=== PATIENT | male | born 1950 | race Caucasian/White ===

== ENCOUNTER 2017-12-29 01:11 | Emergency (ER) | payer MEDICARE ==
[~2017-12-29] VITALS: Ht 175.3 cm; Wt 66.0 kg
[2017-12-29 01:22] VITALS: BP 150/72; PULSE 71; RESP 16; TEMP 98.3; O2SAT 97
--- NOTE | 2017-12-29 01:28 | PD ---
HPI Chief Complaint: Fall, Headache Time Seen by Provider: 01:25 Travel History International Travel<30 days: No Contact w/Intl Traveler<30days: No History of Present Illness HPI Patient is a 67 year old male with a history of NPH s/p [employer]ILDING [employer] shunt by Dr. Pearl at [facility] presents about 2.5 hours after s/f at skilled nursing. He is there apparently rehabilitating a stroke. Alert awake and oriented he initially refused transport 2.5 hours ago. Nursing at that facility called EMS again and patient was transferred. On arrival patient complains only of a mild headache. States he got up to go to the bathroom and lost his footing and fell backwards. No history of anticoagulant use. Symptoms mild, context duration and associated s/s as above. PFSH Past Medical History Cerebrovascular Accident: Yes Diabetes: Yes Social History Alcohol Use: Yes Tobacco Use: No Substance Use: No Allergies-Medications (Allergen,Severity, Reaction): Coded Allergies: No Known Allergies (Verified Adverse Reaction, Unknown, 12/29/17) Reported Meds & Prescriptions Reported Meds & Active Scripts Active Active Prescriptions or Reported Medications Unobtainable Review of Systems Except as stated in HPI: all other systems reviewed are Neg Physical Exam Narrative GENERAL: WD/WN in nad SKIN: Warm and dry. HEAD: Atraumatic. Normocephalic. EYES: Pupils equal and round. No scleral icterus. No injection or drainage. ENT: No nasal bleeding or discharge. Mucous membranes pink and moist. NECK: Trachea midline. No JVD. CARDIOVASCULAR: Regular rate and rhythm. RESPIRATORY: No accessory muscle use. Clear to auscultation. Breath sounds equal bilaterally. GASTROINTESTINAL: Abdomen soft, non-tender, nondistended. Hepatic and splenic margins not palpable. MUSCULOSKELETAL: Extremities without clubbing, cyanosis, or edema. No obvious deformities. NEUROLOGICAL: Awake and alert. GCS of 14 ([id number]) mild confusion. Follows commands in all four extremities and 5/5 strength in all four extremities. CN 2- 12 grossly intact and non-focal. PSYCHIATRIC: Appropriate mood and affect; insight and judgment normal. Data Data Last Documented VS Vital Signs Date Time Temp Pulse Resp B/P (MAP) Pulse Ox O2 Delivery O2 Flow Rate FiO2 12/29/17 02:37 71 16 144/67 (92) 97 Room Air 12/29/17 01:[address] Brain W/O Iv Contrast(Rout) (12/29/17 ) Ct Cerv Spine W/O Contrast (12/29/17 ) Electrocardiogram (12/29/17 01:55) Basic Metabolic Panel (Bmp) (12/29/17 01:55) Complete Blood Count With Diff (12/29/17 01:55) Magnesium (Mg) (12/29/17 01:55) Prothrombin Time / Inr (Pt) (12/29/17 01:55) Act Partial Throm Time (Ptt) (12/29/17 01:55) Chest, Single Ap (12/29/17 01:55) Ecg Monitoring (12/29/17 01:55) Iv Access Insert/Monitor (12/29/17 01:55) Oximetry (12/29/17 01:55) Oxygen Administration (12/29/17 01:55) Sodium Chloride 0.9% Flush (Ns Flush) (12/29/17 02:00) Elevate Head Of Bed (12/29/17 02:26) Elevate Head Of Bed (12/29/17 02:27) Labs Laboratory Tests Test 12/29/17 02:15 White Blood Count 11.2 TH/MM3 Red Blood Count 3.34 MIL/MM3 Hemoglobin 9.7 GM/DL Hematocrit 30.2 % Mean Corpuscular Volume 90.7 FL Mean Corpuscular Hemoglobin 29.0 PG Mean Corpuscular Hemoglobin Concent 32.0 % Red Cell Distribution Width 13.5 % Platelet Count 507 TH/MM3 Mean Platelet Volume 7.9 FL Neutrophils (%) (Auto) 59.8 % Lymphocytes (%) (Auto) 24.8 % Monocytes (%) (Auto) 8.9 % Eosinophils (%) (Auto) 5.5 % Basophils (%) (Auto) 1.0 % Neutrophils # (Auto) 6.7 TH/MM3 Lymphocytes # (Auto) 2.8 TH/MM3 Monocytes # (Auto) 1.0 TH/MM3 Eosinophils # (Auto) 0.6 TH/MM3 Basophils # (Auto) 0.1 TH/MM3 CBC Comment DIFF FINAL Differential Comment Prothrombin Time 11.8 SEC Prothromb Time International Ratio 1.2 RATIO Activated Partial Thromboplast Time 23.3 SEC Blood Urea Nitrogen 29 MG/DL Creatinine 1.30 MG/DL Random Glucose 165 MG/DL Calcium Level 8.4 MG/DL Magnesium Level 1.4 MG/DL Sodium Level 138 MEQ/L Potassium Level 4.4 MEQ/L Chloride Level 105 MEQ/L Carbon Dioxide Level 23.7 MEQ/L Anion Gap 9 MEQ/L Estimat Glomerular Filtration Rate 55 ML/MIN MDM Medical Decision Making Medical Screen Exam Complete: Yes Emergency Medical Condition: Yes Differential Diagnosis Subdural hematoma, Intraparenchymal hematoma, closed head injury. Narrative Course Patient roomed in ED, neurologically has only minimal confusion but he is oriented. CT scan reveals subdural hematoma bilaterally, L>R with 2-3 mm midline shift (on wet read). Official read: Last 24 hours Impressions Chest X-Ray 12/29/17 0155 Signed Impressions: CONCLUSION: Negative examination. Ventriculostomy catheter shunt tubing overlie the right c hest. Head CT 12/29/17 0000 Signed Impressions: CONCLUSION: 1. Bilateral mixed density subdural hematomas left greater than right. There d oes produce some mass effect particularly along the left temporal lobe posterio rly. No intraparenchymal hemorrhage is seen Cervical Spine CT 12/29/17 0000 Signed Impressions: CONCLUSION: 1. C5-6 is fused. Overall good alignment. No evidence of fracture D/W patient and he requests transfer to [facility] for Dr. Pearl who knows him. Discussed with my neurosurgeon imitation marble mechanic Dr. Draper who agrees patient would be best served by surgeon who knows him. D/w Dr. Carlton at [facility] who accepts patient in transfer to ICU. Awaiting room assignment. Patient HOB elevated to 30 degrees. BP is acceptable. Patient is stable for transport to [facility]. Diagnosis Primary Impression: Subdural hematoma Scripts Unable to Obtain Active Prescriptions or Reported Meds Disposition: 70 TRANSFER TO OTHER FACILITY Condition: Stable Donis Lam MD Dec 29, 2017 01:28
[2017-12-29] MEDS ORDERED: SODIUM CHLORIDE 0.9% FLUSH 10 ML FLUSH IVF PRN (02:00)
--- NOTE | 2017-12-29 02:12 | RADRPT ---
EXAM DATE: 12/29/2017 1:56 AM EDT AGE/SEX: 67 years / Male INDICATIONS: Trauma. Fall. Hit back of head. CLINICAL DATA: This is the patient's initial encounter. Patient reports that signs and symptoms have been present for 1 day and indicates a pain score of 8/10. MEDICAL/SURGICAL HISTORY: Cerebrovascular disease. Diabetes. Fusion, cervical. RADIATION DOSE: 64.84 CTDI (mGy) COMPARISON: No prior exams available for comparison. TECHNIQUE: CT of the head without contrast. Using automated exposure control and adjustment of the mA and/or kV according to patient size, radiation dose was kept as low as reasonably achievable to ob tain optimal diagnostic quality images. FINDINGS: Cerebrum: There is a 7 mm mixed density subdural on the left side at the high convexities. Inferiorl y in the mid convexities adjacent to the left temporal lobe there is a 12 mm mixed density subdural. Subdural begins in the high convexities and extends down into the middle cranial fossa. There is a right frontal subdural hematoma with also mixed density smaller only measuring 4 mm. Right -sided ventriculostomy catheter in excellent position. Ventricles are decompressed. Posterior Fossa: The cerebellum and brainstem are intact. The 4th ventricle is midline. The cerebe llopontine angle is unremarkable. Extracranial: The visualized portion of the orbits is intact. Skull: The calvaria is intact. No evidence of skull fracture. CONCLUSION: 1. Bilateral mixed density subdural hematomas left greater than right. There does produce some mass effect particularly along the left temporal lobe posteriorly. No intraparenchymal hemorrhage is seen Electronically signed by: Kev Kaplan MD 12/29/2017 2:11 AM EDT
--- NOTE | 2017-12-29 02:14 | RADRPT ---
EXAM DATE: 12/29/2017 2:03 AM EDT AGE/SEX: 67 years / Male INDICATIONS: Trauma. Fall. Hit back of head. CLINICAL DATA: This is the patient's initial encounter. Patient reports that signs and symptoms have been present for 1 day and indicates a pain score of 0/10. MEDICAL/SURGICAL HISTORY: Cerebrovascular disease. Diabetes. Fusion, cervical. RADIATION DOSE: 26.61 CTDI (mGy) COMPARISON: No prior exams available for comparison. TECHNIQUE: Contiguous axial images were obtained using helical multirow detector technique. The vol umetric data was post-processed with multiplanar reconstruction in oblique axial, sagittal, and coron al planes. Using automated exposure control and adjustment of the mA and/or kV according to patient s ize, radiation dose was kept as low as reasonably achievable to obtain optimal diagnostic quality cesario ges. FINDINGS: Vertebrae: Normal vertebral body height. The C5-6 is fused anteriorly Alignment: Normal. No subluxation. C2-3: The bony spinal canal is normal in size. No evidence of disc bulge or herniation. The neural foramina are bilaterally patent. C3-4: The bony spinal canal is normal in size. No evidence of disc bulge or herniation. The neural foramina are bilaterally patent. C4-5: The bony spinal canal is normal in size. No evidence of disc bulge or herniation. The neural foramina are bilaterally patent. C5-6: The bony spinal canal is normal in size. No evidence of disc bulge or herniation. The neural foramina are bilaterally patent. C6-7: The bony spinal canal is normal in size. No evidence of disc bulge or herniation. The neural foramina are bilaterally patent. C7-T1: The bony spinal canal is normal in size. No evidence of disc bulge or herniation. The neura l foramina are bilaterally patent. CONCLUSION: 1. C5-6 is fused. Overall good alignment. No evidence of fracture Electronically signed by: Kev Kaplan MD 12/29/2017 2:13 AM EDT
--- NOTE | 2017-12-29 02:15 | RADRPT ---
EXAM DATE: 12/29/2017 2:12 AM EDT AGE/SEX: 67 years / Male INDICATIONS: Chest pain. CLINICAL DATA: This is the patient's initial encounter. Patient reports that signs and symptoms have been present for 1 day and indicates a pain score of 5/10. MEDICAL/SURGICAL HISTORY: None. None. COMPARISON: No prior exams available for comparison. FINDINGS: A single AP view of the chest demonstrates the lungs to be symmetrically aerated without evidence of mass, infiltrate or effusion. The cardiomediastinal contours are unremarkable. Osseous structures a re intact. CONCLUSION: Negative examination. Ventriculostomy catheter shunt tubing overlie the right chest. Electronically signed by: Kev Kaplan MD 12/29/2017 2:14 AM EDT
[2017-12-29 02:27] LABS: AUTOMATED NEUTROPHIL # 6.7 TH/MM3 (1.8-7.7); BASOPHIL # 0.1 TH/MM3 (0-0.2); EOSINOPHIL # 0.6 TH/MM3 (0-0.4); EOSINOPHIL % 5.5 % (0.0-4.0); HEMATOCRIT 30.2 % (39.0-51.0); HEMOGLOBIN 9.7 GM/DL (13.0-17.0); LYMPH % 24.8 % (9.0-44.0); LYMPHOCYTE # 2.8 TH/MM3 (1.0-4.8); MEAN CELL VOLUME 90.7 FL (80.0-100.0); MEAN PLATELET VOLUME 7.9 FL (7.0-11.0); MONO % 8.9 % (0.0-8.0); NEUT % 59.8 % (16.0-70.0); PLATELET COUNT 507 TH/MM3 (150-450); RED BLOOD COUNT 3.34 MIL/MM3 (4.50-5.90); RED CELL DISTRIBUTION WIDTH 13.5 % (11.6-17.2); WHITE BLOOD COUNT 11.2 TH/MM3 (4.0-11.0)
[2017-12-29 02:37] VITALS: BP 144/67; PULSE 71; RESP 16; O2SAT 97
[2017-12-29 02:41] LABS: BICARBONATE 23.7 MEQ/L (21.0-32.0); CALCIUM 8.4 MG/DL (8.5-10.1); MAGNESIUM 1.4 MG/DL (1.5-2.5)
[2017-12-29 02:42] LABS: INTERNATIONAL NORMALIZED RATIO 1.2 RATIO; PROTHROMBIN TIME - PATIENT 11.8 SEC (9.8-11.6)
[2017-12-29 02:44] LABS: CREATININE 1.3 MG/DL (0.60-1.30)
[2017-12-29] MEDS ORDERED: AMLO10TA2 PO (02:52)
[2017-12-29] MEDS ORDERED: DAILTAB38 PO (03:03)
[2017-12-29] MEDS ORDERED: SERT-129 PO (03:03)
[2017-12-29] MEDS ORDERED: ASPI81CH7 CHEW (03:03)
[2017-12-29] MEDS ORDERED: CARE PO (03:03)
[2017-12-29] MEDS ORDERED: IPRASOL INH (03:03)
[2017-12-29] MEDS ORDERED: PANT40TA3 PO (03:03)
[2017-12-29] MEDS ORDERED: ZINC100T3 PO (03:03)
[2017-12-29] MEDS ORDERED: ATOR40TA16 PO (03:03)
[2017-12-29] MEDS ORDERED: LANTUS2P SQ (03:03)
[2017-12-29] MEDS ORDERED: LEVO75TA3 PO (03:03)
[2017-12-29] MEDS ORDERED: ASCO500T PO (03:03)
[2017-12-29] MEDS ORDERED: ATEN50TA PO (03:03)
[2017-12-29] MEDS ORDERED: POTA-163 PO (03:03)
--- NOTE | 2017-12-29 23:00 | EKG ---
Date Performed: 12/29/2017 Time Performed: 02:18:03 PTAGE: 67 years EKG: Sinus rhythm NORMAL ECG PREVIOUS TRACING : 06/14/2005 16.48 DOCTOR: Claudia Cortez Interpretating Date/Time 12/29/2017 22:54:20
== END 2017-12-29 03:40 | disposition short-term general hospital (02) ==
LOC: PHED 01:11
DX: S06.5X0A Traumatic subdural hemorrhage without loss of consciousness, initial encounter (principal); R51 Headache; E11.9 Type 2 diabetes mellitus without complications; W01.10XA Fall on same level from slipping, tripping and stumbling with subsequent striking against unspecified object, initial encounter; Y93.01 Activity, walking, marching and hiking; Y92.122 Bedroom in nursing home as the place of occurrence of the external cause; Z86.73 Personal history of transient ischemic attack (TIA), and cerebral infarction without residual deficits
CPT/HCPCS: 70450; 71045; 72125; 80048; 83735; 85025; 85610; 85730; 93005